=== PATIENT | female | born 1965 | race African-American/Black ===

== ENCOUNTER 2017-01-23 07:39 | Emergency (ER) | payer MEDICARE, OTHER ==
[~2017-01-23] VITALS: Ht 170.2 cm; Wt 120.0 kg
--- NOTE | ~2017-01-23 | EKG ---
PATIENT: KENIA WEST UNIT #: [id number] Ventricular Rate: 83 BPM Atrial Rate: 83 BPM P-R Interval: 156 ms QRS Duration: 84 ms Q-T Interval: 396 ms QTC Calculation(Bezet): 465 ms P Lookout: 54 degrees Calculated R Lookout: 19 degrees Calculated T Lookout: 46 degrees Diagnosis Line: Sinus rhythm with Premature atrial complexes with Diagnosis Line: Aberrant conduction Diagnosis Line: Otherwise normal ECG Diagnosis Line: When compared with ECG of 12-AUG-2015 06:45, Diagnosis Line: Aberrant conduction is now Present Diagnosis Line: T wave inversion no longer evident in Anterior Diagnosis Line: leads Diagnosis Line: Confirmed by JOVANY TUCKER MD ([id number]) on 01/23/2017 Diagnosis Line: 5:18:52 PM INTERPRETING MD: CAITLIN GIPSON
--- NOTE | ~2017-01-23 | CR72 ---
[facility] RADIOLOGY TEXT RESULTS PATIENT: KENIA WEST LOCATION: [facility] : [birth year] UNIT #: [id number] AGE: [address]: Christian Shahid MD SEX: F ORDER DR: [id number] [facility] [address] [place], [place] [address] [id number] MR#: [id number] Acc #: [id number] NAME: KENIA WEST. : 1965 SEX: F STUDY DATE/TIME: 01/23/2017 8:18 UNIT: [facility] ROOM: STUDY DESCRIPTION: CR Chest Single View Portable Attending Physician: Christian Shahid M.D. Ordering Physician: Christian Shahid M.D. Primary Care Physician: No Primary Care Physician MEDICAL IMAGING REPORT This report is preliminary unless electronic signature is present EXAMINATION AP portable chest. DATE 01/23/2017 HISTORY Left side chest pain since yesterday. Shortness of breath. COMPARISON PA and lateral chest radiograph, 09/19/2015. FINDINGS Heart size is upper limits normal but stable. Pulmonary vascular distribution is within normal limits. No acute airspace disease, pleural effusion or pneumothorax is identified. Degenerative endplate spurring is present within the thoracic spine. IMPRESSION 1. Stable borderline cardiac enlargement. 2. No acute chest findings. 3. Thoracic spondylosis. Dictated by... Paty Menon M.D. THIS IS AN ELECTRONICALLY VERIFIED REPORT Paty Menon M.D. at 01/28/2017 3:26 PM CANDIDO/elisabeth TD: 01/23/2017 16:52 JOB #: [id number] [facility] RADIOLOGY TEXT RESULTS PATIENT: KENIA WEST LOCATION: [facility] : 69 UNIT #: [id number] AGE: [address]: Christian Shahid MD SEX: F ORDER DR: MEDICAL IMAGING REPORT Page 1 of 1 COPY
[~2017-01-23 07:39] MED LIST: ACETAMINOPHEN325 MG PO; ADVAIR 250-501 EACH INH; ALBUTEROL MININEB NEB; ALBUTEROL17 GM INH; B/P MED; BACTRIM DS TABL1 TAB PO; BP MED; CLONIDINE PO; COMBIVENT MININEB INH; DELTASONE20 MG; DITROPAN-XL5 M1 PO; HCTZ PO; IRON TABLETS1 TAB PO; LEVAQUIN PO; NORVASC PO; PREDNISONE PO; UNK HTN MED; VICODIN PO; ZITHROMAX PO; [UNRECOGNIZED DRUG - REMARK]
[2017-01-23 08:10] LABS: BASOPHIL# 0.1 X10e3 (0-0.3); BASOPHIL% 1.1 % (0-2.5); EOSINOPHIL# 0.1 X10e3 (0-0.7); EOSINOPHIL% 1.7 % (0.0-7.0); HEMATOCRIT 28.2 % (35.0-45.0); LYMPHOCYTE# 3.1 X10e3 (1.0-3.5); MEAN CELL VOLUME 64.5 FL (83-96); MEAN CORPUSCULAR HEMOGLOBIN 20.6 PG (28-34); MEAN CORPUSCULAR HGB CONC 31.9 g/dL (30-36); MEAN PLATELET VOLUME 7.6 FL (6.5-11.5); MONOCYTE# 0.6 X10e3 (0-1.0); MONOCYTE% 6.6 % (3.0-12.0); NEUTROPHIL# 4.5 X10e3 (1.5-7.1); NEUTROPHIL% 53.6 % (40-75); PLATELET COUNT 432 X10e3 (140-420); RED BLOOD COUNT 4.37 X10e (3.90-5.30); RED CELL DISTRIBUTION WIDTH 19.6 % (11.0-15.5); WHITE BLOOD COUNT 8.4 X10e3 (4.0-10.5)
[2017-01-23 08:11] LABS: DIFF IND YES
[2017-01-23 08:29] LABS: ANISOCYTOSIS MOD; HYPOCHROMIA SL; PLATELET ESTIMATE NORMAL (NORMAL)
[2017-01-23 08:36] LABS: POC - CKMB 1.2 ng/mL (0.0-7.9); POC - TROPONIN <0.05 ng/mL (<=0.05)
[2017-01-23 08:38] LABS: ALBUMIN SERUM 3.6 g/dL (3.5-5.0); ALKALINE PHOSPHATASE 57 U/L (32-92); ALT (SGPT) 17 U/L (10-40); AST (SGOT) 20 U/L (10-42); BILIRUBIN,TOTAL 0.7 mg/dL (0.2-2.0); BLOOD UREA NITROGEN 10 mg/dL (9-23); BUN/CREATININE RATIO 14.28; CALCIUM SERUM 8.6 mg/dL (8.4-10.2); CARBON DIOXIDE 22 mmol/L (22-31); CHLORIDE 106 mmol/L (100-111); CREATININE SERUM 0.7 mg/dL (0.6-1.4); GLOM FILT RATE Estimated 117.1 mL/min (>60); GLUCOSE FASTING 102 mg/dL (70-110); POTASSIUM 3.3 mmol/L (3.5-5.1); PROTEIN TOTAL SERUM 7.1 g/dL (6.0-8.3); SODIUM 137 mmol/L (135-145)
[2017-01-23 08:56] LABS: BILIRUBIN, DIRECT <0.1 mg/dL (0.0-0.2); BILIRUBIN,INDIRECT 0.6 mg/dL (0.0-0.9)
[2017-01-23 10:09] LABS: POC - CKMB 1.5 ng/mL (0.0-7.9); POC - TROPONIN <0.05 ng/mL (<=0.05)
== END 2017-01-23 10:53 | disposition home or self-care (01) ==
LOC: CED 07:39
PROVIDERS: Emergency Medicine
DX: R07.89 Other chest pain (principal); I10 Essential (primary) hypertension; J44.9 Chronic obstructive pulmonary disease, unspecified
CPT/HCPCS: 36415; 71010; 80048; 80076; 82553; 83880; 84484; 85025; 93005; 96374; 99285; J1885